=== PATIENT | female | born 1970 | race Caucasian/White ===

== ENCOUNTER → 2018-03-04 | Day surgery (SDC) | payer OTHER ==
[~2018-03-04] MED LIST: Lactated Ringers 1,000 ML IV SCH; Lidocaine 0.5% 50 ML SDV INJECT ONE; Midazolam 1 MG/ML 2 ML SDV IV ONE; Propofol 200 MG/20 ML SDV IV ONE; fentaNYL 100 MCG/2 ML SDV IV ONE
--- NOTE | 2018-03-04 10:19 | OR ---
DATE OF OPERATION: 03/04/2018 PREOPERATIVE DIAGNOSIS: LEFT CARPAL TUNNEL SYNDROME. POSTOPERATIVE DIAGNOSIS: LEFT CARPAL TUNNEL SYNDROME. SURGEON: Rafael Blanchard MD PROCEDURE: RELEASE OF LEFT CARPAL TUNNEL SYNDROME. ANESTHESIA: [place] block. SPECIMEN: None. FINDINGS: Carpal tunnel syndrome. INDICATIONS: This is a 47-year-old female has significant characteristic symptoms of carpal tunnel syndrome. DESCRIPTION OF PROCEDURE: After adequate preparation, the left arm was anesthetized. A longitudinal incision was made along the palmar crease and carried down to the carpal tunnel. This was incised and then both proximally and distally the ligament was cut to completely free up the tunnel. The median nerve was easily visible underneath the carpal tunnel and appeared to be moderately injected with inflammatory process with prominent small blood vessels. No significant bleeding was noted. The skin was closed with intracuticular 4-0 Vicryl. I was not completely comfortable with this closure, however and put in four interrupted 3-0 nylons to help buttress the Vicryl until this heals well. The wound was sterilely dressed and the patient taken to recovery room. OVIDIO/SHENA /[id number]
== END ==
LOC: CC.SDS 07:57
PROVIDERS: ATTEND Surgery
DX: G56.02 Carpal tunnel syndrome, left upper limb (principal); J44.9 Chronic obstructive pulmonary disease, unspecified; J06.9 Acute upper respiratory infection, unspecified; F17.210 Nicotine dependence, cigarettes, uncomplicated; Z68.27 Body mass index [BMI] 27.0-27.9, adult
CPT/HCPCS: J2250; J2704; J3010; J7120